=== PATIENT | female | born 1945 | race Caucasian/White ===

== ENCOUNTER 2025-05-05 11:41 | Inpatient (IN) | payer MEDICARE, BC ==
[~2025-05-05] VITALS: Ht 157.5 cm; Wt 64.4 kg
[2025-05-05 11:59] VITALS: BP 164/94; TEMP 98
[2025-05-05 12:22] VITALS: BP 164/94; TEMP 98
[2025-05-05 12:23] VITALS: BP 164/94; TEMP 98
[2025-05-05 16:46] VITALS: BP 142/63; TEMP 97.7; O2SAT 98
[2025-05-05] MEDS ORDERED: OXYC-128 PO (17:43)
[2025-05-05] MEDS ORDERED: BENA-11 PO (17:43)
[2025-05-05] MEDS ORDERED: CEPH500C2 PO (17:43)
[2025-05-05] MEDS ORDERED: APIX5TAB4 PO (17:43)
[2025-05-05] MEDS ORDERED: DOCU100C36 PO (17:43)
[2025-05-05] MEDS ORDERED: INSU100V44 SQ (17:43)
[2025-05-05] MEDS ORDERED: BISA10SU61 RC (17:43)
[2025-05-05] MEDS ORDERED: CYAN100T44 PO (17:43)
[2025-05-05] MEDS ORDERED: ATOR40TA PO (17:43)
[2025-05-05] MEDS ORDERED: GABA-532 PO (17:43)
[2025-05-05] MEDS ORDERED: ALPR0.255 PO (17:43)
[2025-05-05] MEDS ORDERED: FOLI1TAB94 PO (17:43)
[2025-05-05] MEDS ORDERED: ONDA4AMP IV (17:43)
[2025-05-05] MEDS ORDERED: METO-358 PO (17:43)
[2025-05-05] MEDS ORDERED: POLY17PO4 PO (17:43)
[2025-05-05] MEDS ORDERED: SOD62.5V IV (17:43)
[2025-05-05] MEDS ORDERED: PANT40TA2 PO (17:43)
[2025-05-05] MEDS ORDERED: OXYC-133 PO (17:43)
[2025-05-05] MEDS ORDERED: DOCU100T2 PO (17:43)
[2025-05-05] MEDS ORDERED: REMEDY ESSENTIAL ZINC PASTE 113 GM TOP PRN (18:00)
[2025-05-05] MEDS ORDERED: DEXTROSE 50% 50 ML DISP.SYRIN IV PRN (19:15)
[2025-05-05] MEDS ORDERED: ALPRAZOLAM 0.25 MG TABLET PO PRN (19:15)
[2025-05-05 19:30] VITALS: BP 141/74; TEMP 101.8; O2SAT 95
[2025-05-05 20:05] LABS: PLATELET COUNT (AUTO) 246 K/uL (179-408); RED BLOOD CELL COUNT(AUTO) 3.12 MIL/uL (3.63-4.92); RED CELL DISTRIBUTION WIDTH 18.7 % (12.3-17.7); WHITE BLOOD COUNT (AUTO) 9.5 K/uL (3.8-11.8)
[2025-05-05 20:22] LABS: CREATININE 0.7 mg/dL (0.6-1.3); SODIUM SERUM 139 mmol/L (136-145); UREA NITROGEN, BLOOD 12 mg/dL (7-18)
[2025-05-05] MEDS: BLOOD SUGAR DIAGNOSTIC 1 EACH STRIP VI SCH (20:44)
[2025-05-05] MEDS: ATORVASTATIN 40 MG TABLET PO SCH (20:46)
[2025-05-05] MEDS: ACETAMINOPHEN 325 MG TABLET PO PRN (20:46)
[2025-05-05] MEDS: METOPROLOL TARTRATE 50 MG TABLET PO SCH (20:47)
[2025-05-05] MEDS ORDERED: IV NS 1000 ML 1,000 ML IV ONE (22:45)
[2025-05-05] MEDS: IV NORMAL SALINE 500 ML IV ONE (23:33)
[2025-05-05] MEDS: NEUTRA PHOS PACKET PO ONE (23:48)
[2025-05-05] MEDS: ACETAMINOPHEN 500 MG TABLET PO ONE (23:52)
[2025-05-05] MEDS ORDERED: CEFEPIME HCL 1 G VIAL ONE (23:55)
[2025-05-06 00:07] LABS: *BILIRUBIN,URIN NEGATIVE (NEGATIVE); *BLOOD, URINE NEGATIVE (NEGATIVE); *CLARITY,URINE CLEAR (CLEAR); *COLOR,URINE LIGHT YELLOW (YELLOW); *KETONES,URINE NEGATIVE (NEGATIVE); *PROTEIN,URINE NEGATIVE (NEGATIVE); *UROBILINOGEN,URINE 0.2 E.U./dl (NORMAL); LEUKOCYTE ESTERASE ,URINE NEGATIVE (NEGATIVE); NITRITE, URINE NEGATIVE (NEGATIVE); UGLUCOSE NEGATIVE (NEGATIVE)
[2025-05-06] MEDS: CEFEPIME (MAXEPIME) 1 G in IV DEXTROSE 5% 50 ML IV SCH ×2 (00:27→11:59)
[2025-05-06] MEDS: ALPRAZOLAM 0.25 MG TABLET PO PRN (01:03)
[2025-05-06] MEDS: BISACODYL 10 MG SUPP.RECT RC PRN (02:25)
[2025-05-06 06:49] VITALS: BP 159/69; TEMP 100.3; O2SAT 96
[2025-05-06 06:55] LABS: PLATELET COUNT (AUTO) 249 K/uL (179-408); RED BLOOD CELL COUNT(AUTO) 2.87 MIL/uL (3.63-4.92); RED CELL DISTRIBUTION WIDTH 18.4 % (12.3-17.7); WHITE BLOOD COUNT (AUTO) 8.6 K/uL (3.8-11.8)
[2025-05-06 07:11] LABS: CREATININE 0.7 mg/dL (0.6-1.3); SODIUM SERUM 143 mmol/L (136-145); UREA NITROGEN, BLOOD 8 mg/dL (7-18)
[2025-05-06 07:41] VITALS: BP 157/81; TEMP 98.4; O2SAT 96
[2025-05-06] MEDS: INSULIN REGULAR, HUMAN 1000 UNIT/10 ML VIAL SQ PRN (07:54)
[2025-05-06] MEDS: MIRALAX 17 GM POWD.PACK GT SCH (08:11)
[2025-05-06] MEDS: DOCUSATE SODIUM 100 MG CAPSULE PO SCH ×2 (08:12→20:50)
[2025-05-06] MEDS: FERROUS SULFATE 325 MG TABEC PO SCH (08:25)
[2025-05-06] MEDS: PANTOPRAZOLE SODIUM 40 MG TABLET.DR PO SCH (08:25)
[2025-05-06] MEDS: GABAPENTIN 100 MG CAPSULE PO SCH (08:25)
[2025-05-06] MEDS: FOLIC ACID 1 MG TABLET PO SCH (08:25)
[2025-05-06] MEDS: BENAZEPRIL HCL 20 MG TABLET PO SCH (08:25)
[2025-05-06] MEDS: CYANOCOBALAMIN 1,000 MCG TABLET PO SCH (08:26)
[2025-05-06] MEDS: APIXABAN 5 MG TABLET PO SCH (08:27)
[2025-05-06] MEDS ORDERED: NALO0.4V2 IV (09:13)
[2025-05-06] MEDS ORDERED: GLUC1VIA15 IJ (09:13)
[2025-05-06] MEDS ORDERED: [UNRECOGNIZED DRUG - CODE] IV (09:13)
[2025-05-06] MEDS ORDERED: DEXT38GE12 PO (09:13)
[2025-05-06] MEDS: OXYCODONE/APAP 5-325 MG TABLET PO PRN (09:56)
[2025-05-06 15:37] VITALS: BP 126/54; TEMP 98.3; O2SAT 94
[2025-05-06] MEDS: NEUTRA PHOS PACKET PO ONE (17:28)
[2025-05-06] MEDS: MECLIZINE HCL 25 MG TABLET PO PRN (18:54)
[2025-05-06] MEDS: METOPROLOL TARTRATE 50 MG TABLET PO SCH (18:54)
[2025-05-06 19:25] VITALS: BP 132/73; TEMP 99.3; O2SAT 95
[2025-05-06] MEDS: ATORVASTATIN 40 MG TABLET PO SCH (20:50)
[2025-05-06] MEDS: ONDANSETRON 4 MG/2 ML VIAL IV PRN (21:29)
[2025-05-07 06:22] VITALS: BP 152/75; TEMP 98.1; O2SAT 96
[2025-05-07] MEDS: PANTOPRAZOLE SODIUM 40 MG TABLET.DR PO SCH (06:29)
[2025-05-07 07:10] LABS: CREATININE 0.7 mg/dL (0.6-1.3); SODIUM SERUM 141 mmol/L (136-145); UREA NITROGEN, BLOOD 6 mg/dL (7-18)
[2025-05-07 08:02] VITALS: BP 141/59; TEMP 98; O2SAT 94
[2025-05-07] MEDS: MIRALAX 17 GM POWD.PACK PO SCH (08:38)
[2025-05-07] MEDS: GLUCERNA SHAKE 237 ML CAN PO SCH (16:21)
[2025-05-07 16:56] VITALS: BP 153/73; TEMP 98.4; O2SAT 94
[2025-05-07] MEDS: GABAPENTIN 100 MG CAPSULE PO SCH (21:17)
[2025-05-07 21:20] VITALS: BP 137/63; TEMP 98.8; O2SAT 94
[2025-05-08 05:51] VITALS: BP 136/66; TEMP 98.2; O2SAT 96
[2025-05-08 08:00] VITALS: BP 145/64; TEMP 99.6; O2SAT 97
[2025-05-08 08:26] LABS: PLATELET COUNT (AUTO) 334 K/uL (179-408); RED BLOOD CELL COUNT(AUTO) 3.42 MIL/uL (3.63-4.92); RED CELL DISTRIBUTION WIDTH 19.5 % (12.3-17.7); WHITE BLOOD COUNT (AUTO) 6.1 K/uL (3.8-11.8)
[2025-05-08 08:35] LABS: CREATININE 0.8 mg/dL (0.6-1.3); SODIUM SERUM 143 mmol/L (136-145); UREA NITROGEN, BLOOD 8 mg/dL (7-18)
[2025-05-08] MEDS: ACETAMINOPHEN/CODEINE 300-30 MG TABLET PO PRN (09:32)
[2025-05-08] MEDS: SENNOSIDES/DOCUSATE SODIUM TABLET PO SCH (09:33)
[2025-05-08 17:00] VITALS: BP 123/75; TEMP 99.9; O2SAT 97
[2025-05-08] MEDS ORDERED: TRAZODONE 50 MG TABLET PO PRN (22:45)
[2025-05-08] MEDS: TRAZODONE 50 MG TABLET ONE (22:53)
[2025-05-08] MEDS: TRAZODONE 50 MG TABLET PO PRN (22:59)
[2025-05-08] MEDS ORDERED: TRAZODONE 100 MG TABLET PO PRN (23:00)
[2025-05-09 06:54] VITALS: BP 136/58; TEMP 97.8; O2SAT 97
[2025-05-09 07:30] VITALS: BP 125/56; TEMP 98; O2SAT 95
[2025-05-09] MEDS: FLEET ENEMA 133 ML BOTTLE RC ONE (12:00)
[2025-05-09] MEDS: BISACODYL 10 MG SUPP.RECT RC PRN (14:55)
[2025-05-09 15:27] VITALS: BP 124/54; TEMP 98.8; O2SAT 99
[2025-05-09 17:34] VITALS: BP 123/61; TEMP 98.2; O2SAT 97
[2025-05-09 21:45] VITALS: BP 147/63; TEMP 97.7; O2SAT 97
[2025-05-10 07:02] VITALS: BP 142/62; TEMP 98.3; O2SAT 97
[2025-05-10 08:54] VITALS: BP 105/51; TEMP 97.8; O2SAT 98
[2025-05-11 06:54] VITALS: BP 106/57; TEMP 98.8; O2SAT 98
[2025-05-11 07:10] VITALS: BP 112/48; TEMP 98.2; O2SAT 98
[2025-05-11 08:01] LABS: PLATELET COUNT (AUTO) 307 K/uL (179-408); RED BLOOD CELL COUNT(AUTO) 3.23 MIL/uL (3.63-4.92); RED CELL DISTRIBUTION WIDTH 19.4 % (12.3-17.7); WHITE BLOOD COUNT (AUTO) 4.9 K/uL (3.8-11.8)
[2025-05-11 08:14] LABS: CREATININE 0.8 mg/dL (0.6-1.3); SODIUM SERUM 140 mmol/L (136-145); UREA NITROGEN, BLOOD 11 mg/dL (7-18)
[2025-05-11 08:15] VITALS: BP 115/51; TEMP 98.4; O2SAT 97
[2025-05-11 15:40] VITALS: BP 109/43; TEMP 97.5; O2SAT 99
[2025-05-11 19:40] VITALS: BP 124/43; TEMP 97.9; O2SAT 94
[2025-05-12 05:35] VITALS: BP 132/78; TEMP 98; O2SAT 92
[2025-05-12 05:38] VITALS: BP 124/48; TEMP 98.7; O2SAT 92
[2025-05-12 08:30] VITALS: BP 132/61; TEMP 97.7; O2SAT 95
[2025-05-12 19:17] VITALS: BP 121/44; TEMP 98; O2SAT 96
[2025-05-12 20:19] VITALS: BP 132/50; TEMP 98.3; O2SAT 95
[2025-05-13 05:49] VITALS: BP 125/66; TEMP 97.9; O2SAT 95
[2025-05-13 08:29] LABS: PLATELET COUNT (AUTO) 354 K/uL (179-408); RED BLOOD CELL COUNT(AUTO) 3.54 MIL/uL (3.63-4.92); RED CELL DISTRIBUTION WIDTH 20.5 % (12.3-17.7); WHITE BLOOD COUNT (AUTO) 6.1 K/uL (3.8-11.8)
[2025-05-13 08:30] VITALS: BP 125/66; TEMP 97.9; O2SAT 97
[2025-05-13 08:37] LABS: CREATININE 0.8 mg/dL (0.6-1.3); SODIUM SERUM 140 mmol/L (136-145); UREA NITROGEN, BLOOD 16 mg/dL (7-18)
[2025-05-13] MEDS: IV NS 1000 ML 1,000 ML IV ONE (10:14)
[2025-05-13 18:44] VITALS: BP 146/62; TEMP 97.7; O2SAT 97
[2025-05-13 20:17] VITALS: BP 135/64; TEMP 98.2; O2SAT 94
[2025-05-14 06:12] VITALS: BP 103/49; TEMP 98.5; O2SAT 96
[2025-05-14] MEDS ORDERED: BENAZEPRIL HCL 20 MG TABLET PO SCH (09:00)
[2025-05-14] MEDS: BENAZEPRIL HCL 10 MG TABLET PO SCH (09:22)
[2025-05-14] MEDS: LORAZEPAM 1 MG TABLET PO SCH (12:17)
[2025-05-14 17:21] VITALS: BP 122/66; TEMP 98; O2SAT 96
[2025-05-14 19:33] VITALS: BP 115/54; TEMP 98.2; O2SAT 95
[2025-05-15 06:25] VITALS: BP 111/49; TEMP 98; O2SAT 95
[2025-05-15 08:00] VITALS: BP 115/47; TEMP 97.2; O2SAT 97
[2025-05-15 12:00] VITALS: BP 121/47; TEMP 97; O2SAT 97
[2025-05-15] MEDS: TRAMADOL HCL 50 MG TABLET PO SCH (14:07)
[2025-05-15 16:00] VITALS: BP 106/48; TEMP 97.6; O2SAT 97
[2025-05-15 20:00] VITALS: BP 131/58; TEMP 98; O2SAT 95
[2025-05-15] MEDS ORDERED: FLEET ENEMA 133 ML BOTTLE RC PRN (23:45)
[2025-05-16 04:00] VITALS: BP 111/49; TEMP 98.2; O2SAT 95
[2025-05-16 08:29] VITALS: BP 104/45; TEMP 98.2; O2SAT 94
[2025-05-16 16:25] VITALS: BP 104/43; TEMP 98.5; O2SAT 94
[2025-05-16 22:01] VITALS: BP 114/42; TEMP 98.9; O2SAT 96
[2025-05-17 06:53] VITALS: BP 107/39; TEMP 98.8; O2SAT 96
[2025-05-17 08:00] VITALS: BP 122/47; TEMP 98.4; O2SAT 92
[2025-05-17 08:51] VITALS: BP 122/47
== END 2025-05-17 15:00 | DRG 561 ==
PROVIDERS: ADMIT Physical Medicine & Rehabilitation Pain Medicine; ATTEND Physical Medicine & Rehabilitation Pain Medicine
DX: Z47.1 Aftercare following joint replacement surgery (principal); D50.9 Iron deficiency anemia, unspecified; E11.40 Type 2 diabetes mellitus with diabetic neuropathy, unspecified; E78.5 Hyperlipidemia, unspecified; G89.29 Other chronic pain; Z79.01 Long term (current) use of anticoagulants; I10 Essential (primary) hypertension; Z95.2 Presence of prosthetic heart valve; M16.11 Unilateral primary osteoarthritis, right hip; Z96.641 Presence of right artificial hip joint; I48.0 Paroxysmal atrial fibrillation; Z95.0 Presence of cardiac pacemaker; R53.81 Other malaise; I95.1 Orthostatic hypotension; R50.9 Fever, unspecified
CPT/HCPCS: 36415; 71045; 83605; 83735; 84100; 85025; 87040; 87086; 97535-GO-CO; A9150; J0692; J1815; J2405; J7040; J8597